=== PATIENT | female | born 2000 | race African-American/Black ===

== ENCOUNTER 2020-08-15 13:20 | Outpatient (CLI) | payer SELFPAY ==
[~2020-08-15] VITALS: Ht 154.9 cm; Wt 52.7 kg
[2020-08-15 13:54] LABS: MICROSCOPIC INDICATED
[2020-08-15 14:02] LABS: AMPHETAMINE SCREEN, URINE Negative (Negative); BARBITURATE SCREEN, URINE Negative (Negative); BENZODIAZEPINE SCREEN, URINE Negative (Negative); CANNABINOID SCREEN, URINE Positive (Negative); COCAINE SCREEN, URINE Negative (Negative); METHADONE SCREEN, URINE Negative (Negative); OPIATE SCREEN, URINE Negative (Negative)
== END 2020-08-15 15:37 | disposition home or self-care (01) ==
LOC: LDOP 13:20
PROVIDERS: ATTEND Obstetrics & Gynecology
DX: O36.8130 Decreased fetal movements, third trimester, not applicable or unspecified (principal); Z3A.29 29 weeks gestation of pregnancy
CPT/HCPCS: 59025; 76817; 80307; 81001; 87086

== ENCOUNTER 2020-12-07 08:44 | Emergency (ER) | payer MEDICAID ==
[~2020-12-07] VITALS: Ht 154.9 cm; Wt 48.2 kg
--- NOTE | 2020-12-07 09:40 | NUR ---
PT C/O SA AND STATES SHE TOOK A BOTTLE OF ALEVE, UNK EXACT AMOUNT AND DRANK A LOT OF WINE. PT C/O NAUSEA CURRENTLY. PT BELONGINGS COLLECTED BY TECH AND PLACED IN SECURE LOCKER. BELONGINGS FORM COMPLETED BY TECH. PT IN SECURE ROOM WITH SITTR OUTSIDE DOOR.
[2020-12-07 09:42] LABS: BASOPHILS % (AUTO) 1 % (0-1); EOSINOPHILS % (AUTO) 0 % (1-7); LYMPHOCYTES % (AUTO) 23 % (22-44); MEAN CORPUSCULAR HEMOGLOBIN 27.5 pg (27.0-34.8); MEAN CORPUSCULAR HGB CONC 32.9 g/dL (32.4-35.8); MEAN PLATELET VOLUME 8.5 fL (7.4-10.4); MONOCYTES % (AUTO) 4 % (2-9); NEUTROPHILS % (AUTO) 71 % (42-75); PLATELET COUNT 244 x10^3/uL (130-400); RED BLOOD COUNT 5.09 x10^6/uL (3.82-5.3); RED CELL DISTRIBUTION WIDTH 16.2 % (9.6-15.2)
[2020-12-07 09:47] LABS: MD NO
[2020-12-07 09:52] LABS: ALANINE AMINOTRANSFERASE 10 U/L (12-78); ALBUMIN 4.7 g/dL (3.4-5.0); ANION GAP 9 mmol/L (5-15); CALCIUM 9.3 mg/dL (8.5-10.1); CHLORIDE 109 mmol/L (98-107); CREATININE 0.95 mg/dL (0.55-1.02); SALICYLATE LEVEL 2.8 mg/dL (2.8-20.0)
[2020-12-07 09:58] LABS: ALKALINE PHOSPHATASE 81 U/L (45-117); BILIRUBIN,TOTAL 2.2 mg/dL (0.2-1.0); TOTAL PROTEIN 7.5 g/dL (6.4-8.2)
--- NOTE | 2020-12-07 11:09 | NUR ---
CONTACTED LAUREL, MOTHER IN LAW AT PT'S REQUEST. PHONE NUMBER [phone].
[2020-12-07] MEDS ORDERED: POTASSIUM CHLORIDE 20 MEQ TAB.ER.PRT PO ONE (12:00)
--- NOTE | 2020-12-07 12:19 | NUR ---
ATTEMPTED TO CALL FAMILY MEMBER X 2, PHONE LINE BUSY
[2020-12-07] MEDS ORDERED: POTASSIUM CHLORIDE 20 MEQ TAB.ER.PRT ONE (12:41)
[2020-12-07 13:03] VITALS: BP 118/100
--- NOTE | 2020-12-07 13:15 | NUR ---
BREAK RN: SHANNAN CALLED. TOLD TO CALL ED WHEN HERE. SITTER STILL IN PLACE.
== END 2020-12-07 13:53 | disposition home or self-care (01) ==
LOC: ED 13:21
DX: F32.0 Major depressive disorder, single episode, mild (principal); E87.6 Hypokalemia; F43.24 Adjustment disorder with disturbance of conduct; Z72.9 Problem related to lifestyle, unspecified; R94.31 Abnormal electrocardiogram [ECG] [EKG]
CPT/HCPCS: 36415; 80053; 80299; 80320; 80329; 84703; 85025; 93005; 99284; G0480